=== PATIENT | female | born 1990 | race Caucasian/White ===

== ENCOUNTER 2021-08-21 12:00 | Outpatient (CLI) | payer SELFPAY ==
--- NOTE | 2021-08-21 12:21 | CT_ITS ---
WS: [id number] CT ABDOMEN AND PELVIS WITH CONTRAST HISTORY: ABDOMINAL PAIN, follow-up on splenomegaly TECHNIQUE: Imaging performed of the abdomen and pelvis with IV contrast. Single phase imaging of the abdomen. Coronal and sagittal reformats are submitted. All CT scans at [facility] use at [facility] [facility] one of these dose optimization techniques: automated exposure control; mA and/or kV adjustment per patient size (includes targeted exams where dose is matched to clinical indication); or iterative re construction. IV CONTRAST: Omnipaque 300; 95 mL IV. Oral contrast: Yes. DLP: 964.80 mGy.cm COMPARISON: Ultrasound 06/17/2011 Lower thorax: Lung bases are clear. Heart is normal size. No hiatal hernia. Liver/biliary system: Normal size with no intrahepatic dilatation. Gallbladder: Normal. No gallstones or wall thickening. No pericholecystic fluid. Pancreas: Normal size pancreas and pancreatic duct. No adjacent inflammation. Spleen: Normal size spleen. No mass or infarct. Adrenal glands: Normal. Right kidney: Normal size kidney. 8 mm cyst in the mid kidney. No obstruction. Left kidney: Normal. Aorta: Normal. Lymphadenopathy: None. Free fluid: None. GI tract: Normally distended stomach. No small bowel obstruction. Mild fecal retention in the RIGHT c olon. The appendix is normal. Abdominal wall: Unremarkable abdominal wall. No hernia. Pelvis: Uterus is anteverted. Mild thickening of the endometrium may be due to patient's menstrual cy nick. Normal urinary bladder. Bones: Sclerotic focus is lobulated in the proximal LEFT femur metaphysis. Enchondroma or infarct. No cortical destruction and no adjacent periosteal reaction. CT/CT abdomen pelvis w con* [id number] IMPRESSION: 1. Normal size spleen. 2. Lobulated sclerotic focus in the proximal LEFT femur. Probably an infarct o r enchondroma. 3. Mild thickening of the endometrium. May be related to patient's menstrual c ycle. If the patient is having abnormal vaginal bleeding consider follow-up tra nsvaginal pelvic ultrasound imaging.
[2021-08-21] MEDS: iohexol 300 mg/mL 100 mL Btl IV (14:08)
[2021-08-21] MEDS: iohexol 300 mg/mL 50 mL Btl PO (14:08)
== END 2021-08-21 12:01 | disposition home or self-care (01) ==
LOC: RAD 12:01
PROVIDERS: Family Provider Nurse Practitioner; PCP Nurse Practitioner Family; Visit Provider Nurse Practitioner Family
DX: R10.9 Unspecified abdominal pain (principal); R93.89 Abnormal findings on diagnostic imaging of other specified body structures
CPT/HCPCS: 74177

== ENCOUNTER → 2022-03-26 08:34 | Outpatient (BNVA) | payer SELFPAY | PROVIDERS: Family Provider Nurse Practitioner; PCP Nurse Practitioner Family; Referring Provider Nurse Practitioner Family; Visit Provider Podiatrist Foot & Ankle Surgery | DX: G57.91 Unspecified mononeuropathy of right lower limb (principal); R60.9 Edema, unspecified | CPT/HCPCS: 73630 ==

== ENCOUNTER 2023-10-07 10:50 | Outpatient (CLI) | payer SELFPAY ==
[2023-10-07 11:05] VITALS: BP 119/76; PULSE 81
[2023-10-07 11:10] VITALS: BMI 35.5
--- NOTE | 2023-10-07 12:00 | PC.NURSE ---
patient was educated on NST, moderate variability, acceleration. Patient expressed concern about lower FHTs in clinic being cause by a nucal cord, educated patient that while nucal cords are not uncommon it is rare that nucal cords cause a significant issue. Provided written education on when to return to labor and delivery. Patient signed discharge paperwork. Several minutes later, Christian Christian notified this nurse that the patient had told her that she would like an ultrasound to check on baby. This RN called Dr. Cano to notify her of patients request and education provided. Dr. Cano stated that an ultra sound was not indicated at this time and to reeducate patient and if patient still has concerns that she can follow up with Dr. Cano in clinic. Education provided again, questions answered. 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 Patient stated that she understood.
== END 2023-10-07 12:00 | disposition home or self-care (01) ==
LOC: OPOB 10:55 → OBGYN 10:55
PROVIDERS: PCP Family Medicine; Visit Provider Family Medicine
DX: O26.899 Other specified pregnancy related conditions, unspecified trimester (principal); Z3A.00 Weeks of gestation of pregnancy not specified
CPT/HCPCS: 59025; 99211

== ENCOUNTER 2023-10-19 07:00 | Inpatient (IN) | payer SELFPAY ==
[2023-10-19] VITALS (123 sets, daily range): BP systolic 83–140; BP diastolic 46–94; PULSE 60–121; TEMP 35.9–37; O2SAT 96–100; BMI 35.6
[2023-10-19 04:23] LABS: Nitrazine Paper, PH Inconclusive
[2023-10-19 05:19] LABS: Actim Prom Positive
[2023-10-19] MEDS: clindamycin 900 MG/50 ML PREMIX 100 MG IV ×3 (06:14→21:30)
[2023-10-19] MEDS: dextrose 5%-lactated ringers 1,000 ML 125 ML IV (06:17)
[2023-10-19 06:26] LABS: Basophils % 0.4 %; Eosinophils # 0.1 10^3/uL (0.0-0.8); Hematocrit 34.1 % (36-47); Lymphocytes # 1.5 10^3/uL (0.8-4.8); Lymphocytes % 19.8 %; Mean Corpuscular Hemoglobin 29.4 pg (27-33); Mean Corpuscular Volume 91.9 fl (85-98); Mean Platelet Volume 12.3 fL (7.4-10.4); Monocytes # 1.2 10^3/uL (0.2-0.9); Monocytes % 15.1 %; Neutrophils % 62.7 %; Nucleated Red Blood Cells % 0 %; Platelet Count 222 10^3/cmm (157-399); Red Blood Count 3.71 10^6/uL (3.85-5.65); Red Cell Distribution Width 12.8 % (12.1-15.1); White Blood Count 7.67 10^3/uL (3.29-11.43)
[2023-10-19] MEDS: oxytocin 30 UNIT/500 ML BAG IV (09:11)
[2023-10-19] MEDS: lactated ringers 1,000 ML 999 ML IV ×2 (16:27→17:57)
[2023-10-19] MEDS: ondansetron 2 mg/ML SDV 2 mL 4 MG IVP (16:44)
--- NOTE | 2023-10-19 18:11 | PM.OPHPUD ---
Labor & Delivery H&P Update Date of Procedure: October 19, 2023 Date H&P Performed: 10/14/23 Admission Diagnosis: IUP at 39 weeks 3 days gestation Spontaneous rupture of membranes Group B strep carrier Primary indication for procedure: Induction of labor and delivery with GBS prophylaxis
--- NOTE | 2023-10-19 18:20 | PC.NURSE ---
Pitocin paused while distinguishing between and maternal heart rate on monitor.
--- NOTE | 2023-10-19 18:31 | ANES.PREANE2 ---
Pre-Anesthetic Assessment Height/Weight: Height 1.68 m Weight 100.244 kg Temp Pulse BP Pulse Ox O2 Del Method 97.7 F 96 124/66 98 Room Air 10/19/23 16:34 10/19/23 18:26 10/19/23 18:26 10/19/23 18:26 10/19/23 05:48 Preop Diagnosis: IUP Labor epidural Familial anesthetic complications: None Was Beta Diego taken within 24 hours: N/A Was Clonidine taken within 24 hours: N/A Last intake: liquid 1800 10/19/23; solid >8 hours Social No alcohol and No tobacco Exam alert, oriented x 3 and clear to auscultation bilaterally Airway Submandibular: within normal limits Mallampati: Class II Dentition: full History/ROS No significant history except as noted Pulmonary None reported CV/HEM None reported None reported Hepatic enlarged spleen GI None reported Metabolic None reported Musc/skel None reported Neuropsych None reported Anesthetic Plan ASA status: 2 Anesthesia: Anesthesia Evaluation and Regional (specify below) (epidural) Risk of > 500 ml blood loss (7ml/kg in children): Yes, adequate IV access and fluids planned Medications/Allergies Home Medications Medication Instructions Recorded Confirmed Last Taken Type 1 cap PO DAILY 10/07/23 10/19/23 1 Day Ago History ~10/18/23 1 Allergies Allergy/AdvReac Type Severity Reaction Status Date / Time Penicillins Allergy Unknown Unknown Verified 03/26/22 08:42 vaccine adjuvant system, Allergy Unknown Unknown Verified 03/26/22 08:42 [id number] liposomal peanuts Allergy Mild ADR-Gastrointestinal Uncoded 03/26/22 08:42 Upset Current Medications Generic Name Dose Route Start Last Admin Trade Name Ricq PRN Reason Stop Dose Admin Dextrose/Lactated Ringer's 1,000 mls @ 125 mls/hr 10/19/23 05:30 10/19/23 17:55 Dextrose 5%-Lactated Ringers IV Infused .Q8H HERSON Infusion Clindamycin HCl/Dextrose 900 mg in 50 mls @ 100 mls/hr 10/19/23 05:30 10/19/23 13:45 Cleocin IV Infused Q8H HERSON Infusion Protocol Oxytocin 30 unit in 500 mls @ 1 mls/hr 10/19/23 09:00 10/19/23 12:20 Pitocin IV 20 milliunit/min .Q24H HERSON 20 mls/hr Titration Protocol 1 MILLIUNIT/MIN Lactated Ringer's 1,000 mls @ 999 mls/hr 10/19/23 16:24 10/19/23 17:57 Lactated Ringers IV 999 mls/hr .Q1H1M PRN Administration See label comments Ondansetron HCl 4 mg 10/19/23 05:25 10/19/23 16:44 Ondansetron 2 Mg/Ml Sdv 2 Ml IVP 4 mg Q4H PRN Administration NAUSEA AND VOMITING PFSH Anesthesia Medical History Heart murmur History of kidney stones Ruptured ear drum both Spleen enlarged Surgical History (Updated 11/02/20 @ 23:05 by PRO Loredo) [place] teeth extracted Family History (Updated 10/29/20 @ 16:37 by Desi Baker MA) Other Cancer Chronic kidney disease (CKD) Dementia Diabetes Hypertension Lung disease Stroke Denies family history of Bleeding disorder Social History Smoking and tobacco/nicotine status: never used tobacco/nicotine Second hand smoke exposure: No Alcohol intake: never Substance/Drug Use: never Adopted: No Caregiver/support person: No Lives independently: Yes Household members: none Housing: House Marital status: Single Number of children: 0 Highest education level completed: Professional Degree (MD, DO, ZARINA, DVM, DDS, DPM, etc) service: No Current occupational status: employed Current occupation: [employer] Do you think of yourself as: Straight/Heterosexual Current gender identity: Female Female Reproductive History : 1 Data Anesthesia 10/19/23 06:17 Short CBC 10/19/23 Range/Units 06:17 WBC 7.67 (3.29-11.43) 10^3/uL Hgb 10.90 L (11.27-16.99) g/dL Hct 34.1 L (36-47) % MCV 91.9 (85-98) fl Plt Count 222 (157-399) 10^3/cmm Neut % (Auto) 62.7 % Neut # (Auto) 4.80 (1.8-7.7) 10^3/uL Blood Bank 10/19/23 10/19/23 06:17 08:41 Blood Type Cancelled A Positive Rho(D) Type Cancelled Rh positive Antibody Screen Cancelled Negative Cardiac Studies: No Data to Display Anesthesia Procedures Epidural Time Out Performed: Yes Consents Signed: Procedure Consent Consent: requested by attending/covering physician, from patient, risks and benefits reviewed and patient agrees to proceed Lumbar Level: L4-L5 Epidural position: sitting Epidural procedure: sterile prep of area, 1% lidocaine to numb the area, 18 g needle, negative for paresthesia passed, neg for paresthesia, test dose given, 1.5% xylocaine 1:200k epi, 0.2% Ropivacaine bolus ml (5), placed PCEA, no systemic response, sterile dressing applied, L.U.D. no apparent complications and 0.2% Ropiavacaine @ mls/hr (10) Additional Comments: UMER 6cm, catheter easily threaded to 5cm in the space. Pt reporting decreased pain with contractions, all VS monitored throughout and remained stable. 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
[2023-10-19] MEDS: ROPivacaine syringe 100 MG/50 ML SYRINGE 10 MG EPIDURAL ×2 (18:35→22:16)
[2023-10-20] VITALS (41 sets, daily range): BP systolic 86–164; BP diastolic 36–132; PULSE 59–112; RESP 16; TEMP 37.1–37.3; O2SAT 97–100; BMI 35.6
[2023-10-20] MEDS: dextrose 5%-lactated ringers 1,000 ML 125 ML IV ×4 (00:21→21:42)
[2023-10-20] MEDS: ROPivacaine syringe 100 MG/50 ML SYRINGE 10 MG EPIDURAL (01:57)
[2023-10-20] MEDS: lactated ringers 1,000 ML 999 ML IV (02:19)
[2023-10-20] MEDS: citric acid-sodium citrate 30 mL UDC PO (02:19)
[2023-10-20] MEDS: famotidine 20 mg/2 mL INJ IVP (02:19)
[2023-10-20] MEDS: metoclopramide 5 mg/mL SDV 2 mL 10 MG IV (02:19)
[2023-10-20] MEDS: ceFAZolin 2,000 MG in sodium chloride 0.9% (plus) 50 ML 100 MG IV (02:38)
--- NOTE | 2023-10-20 03:51 | PM.OP ---
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 She had pushed for about an hour and was pushing effectively. Nursing had called her 0 station but upon my examination I would call her -2. There was 0 movement of the presenting part with effective pushing so decision was made to proceed with primary section. Procedure: After informed consent the patient was taken to the OR where adequate epidural anesthesia was verified. She was prepped and draped in normal sterile fashion in dorsal supine position with a left lateral tilt. A Pfannenstiel skin incision was made and carried through to the underlying layer of fascia sharply. There were several bleeders that were coagulated using the Bovie. The fascial incision was then extended laterally using the May[place]. The fascia was then grasped with [place] clamps and the underlying rectus muscles were dissected off taking care to avoid injury to the underlying tissue. The peritoneum was then entered bluntly and the incision site was manually stretched. The bladder blade was inserted. The vesicouterine peritoneum was identified and entered sharply using the Metzenbaums. The bladder flap was then created digitally and the bladder blade was reinserted. Uterine incision was made in a transverse fashion in the lower uterine segment. Amniotic rupture of membranes was performed sharply and clear fluid was noted. The was delivered in OP vertex presentation with bulb suction of the mouth and naris at delivery. The cord was clamped and cut. The infant was handed to the waiting pediatric nurse. Cord blood was obtained. The placenta was delivered using fundal pressure. The uterus was then exteriorized from the abdomen and a dry sponge was used to clear the uterus of clots and debris. The uterine incision was repaired using 0 chromic in a running locked fashion. The uterus was very boggy so 10 units of Pitocin was injected into the muscular body. A second layer of the same suture was then used in an imbricating manner. The uterus was then returned to the abdomen. Irrigation was used to clear the gutters of clots and debris and the uterine incision was reinspected for hemostasis. The peritoneum was then reapproximated using 4-0 Vicryl in a running fashion. The subfascial tissue was inspected for hemostasis and the fascia was then reapproximated using 0 Vicryl in a running fashion. The subcutaneous tissue was then irrigated. The subcutaneous tissue was then reapproximated using 4-0 Vicryl in a running fashion. The skin was then reapproximated using 4-0 Vicryl on a Artemio needle. Steri-Strips and a pressure bandage were applied patient went to recovery in good condition. Sponge instrument and needle counts were correct.
[2023-10-20] MEDS: oxytocin 30 UNIT/500 ML BAG 300 UNIT IV (05:02)
[2023-10-20] MEDS: ferrous sulfate EC 325 mg Tablet PO ×2 (09:39→18:39)
[2023-10-20] MEDS: docusate sodium 100 mg Capsule PO ×2 (09:40→18:39)
[2023-10-20] MEDS: PRENATAL VIT NO.130/IRON/FOLIC 1 EACH TABLET PO (09:40)
[2023-10-20] MEDS: ketorolac 30 mg/mL INJ IVP ×3 (09:40→21:43)
[2023-10-20] MEDS: sodium chloride 0.9% 500 ML 999 ML IV ×2 (12:44→16:16)
[2023-10-20 16:14] LABS: Hematocrit 26.9 % (36-47); Mean Corpuscular HGB Conc 33.1 g/dL (30-55); Mean Corpuscular Hemoglobin 30.1 pg (27-33); Mean Corpuscular Volume 90.9 fl (85-98); Mean Platelet Volume 12.8 fL (7.4-10.4); Platelet Count 198 10^3/cmm (157-399); Red Blood Count 2.96 10^6/uL (3.85-5.65); Red Cell Distribution Width 12.9 % (12.1-15.1); White Blood Count 13.89 10^3/uL (3.29-11.43)
[2023-10-21 03:24] VITALS: BP 105/57; PULSE 63
[2023-10-21 03:29] VITALS: TEMP 36.8
[2023-10-21 07:54] VITALS: BP 102/60; PULSE 69
[2023-10-21] MEDS: docusate sodium 100 mg Capsule PO ×2 (07:54→17:46)
[2023-10-21] MEDS: HYDROcodone-acetaminophen 5-325 mg Tablet PO ×3 (07:54→22:58)
[2023-10-21 07:55] VITALS: RESP 16; TEMP 36.9
[2023-10-21] MEDS: ferrous sulfate EC 325 mg Tablet PO ×2 (07:55→17:46)
--- NOTE | 2023-10-21 08:00 | ANE.PACU2 ---
Inpatient post-anesthesia follow up: Airway intact: Yes Vital signs: Temperature 98.1 F Pulse Rate 64 Respiratory Rate 18 Blood Pressure 121/77 Pulse Oximetry 97 Oxygen Delivery Me thod Room Air Oxygen Flow Rate Fraction of Inspir ed Oxygen Hydration adequate: Yes Nausea and vomiting: No Pain level: 1 Mental status: Baseline Epidural Start/End: Epidural Start Date: 10/19/23 Epidural Start Time: 18:18 Epidural End Date: 10/20/23 Epidural End Time: 03:40
--- NOTE | 2023-10-21 12:32 | PM.PN ---
Subjective Subjective: Postop day 1 primary section Doing well. She has been up and showered, she is ambulating, she is tolerating a regular diet, she has decent pain control. Vitals/I&O/Wt Last Vital Signs Temp 98.4 F 10/21/23 07:55 Pulse 69 10/21/23 07:54 Resp 16 10/21/23 07:55 BP 102/60 10/21/23 07:54 Pulse Ox 97 10/20/23 04:20 O2 Del Method Room Air 10/20/23 04:20 10/20/23 10/21/23 10/21/23 22:59 06:59 14:59 Intake Total 368.75 / 1610.431 8612 / 1200 Output Total 460 / 835 375 / 1210 800 / 800 Balance -91.25 / 429.583 -375 / 54.583 400 / 400 Weight last 48 hrs Weight 100.244 kg Physical Exam Narrative: Alert and oriented, sitting up in bed holding infant, heart regular rate and rhythm, lungs clear to auscultation bilaterally, abdomen is soft with appropriate postoperative tenderness, incision is clean dry and intact with Steri-Strips in place, extremities have 1+ edema but no calf tenderness Urinary Catheter Management: Marmolejo: Cath Placed During This Visit: yes, but has since been removed by the nurse Reason for Continuing Indwelling Catheter: Perioperative Use in Selected Surgeries Urinary Catheter Date of Insertion: 10/20/23 Urinary Catheter Time of Insertion: 02:00 Date Urinary Catheter Removed: 10/21/23 Time Urinary Catheter Discontinued: 08:15 Data 10/20/23 15:00 A&P Assessment and plan (1) Delivery by section using low vertical uterine incision: For failure to descend Attestations Medical Necessity Statement*: Continue routine postoperative and care Coding Level of Care Code Acute Code for Chg Fwd Diagnoses Delivery by section using low vertical uterine incision O82
[2023-10-21 15:05] VITALS: BP 112/76; PULSE 81
[2023-10-21 21:11] VITALS: BP 105/62; PULSE 69; PULSE 74; RESP 18; TEMP 36.9; O2SAT 97
[2023-10-21] MEDS: simethicone 80 mg Chew PO (21:13)
[2023-10-22] VITALS (7 sets, daily range): BP systolic 104–121; BP diastolic 63–77; PULSE 59–64; RESP 16–18; TEMP 36.6–36.8
[2023-10-22] MEDS: docusate sodium 100 mg Capsule PO (10:30)
[2023-10-22] MEDS: HYDROcodone-acetaminophen 5-325 mg Tablet PO (10:30)
[2023-10-22] MEDS: ferrous sulfate EC 325 mg Tablet PO (10:30)
--- NOTE | 2023-10-22 12:45 | P.PN_ITS ---
Subjective 2 Subjective: see d/c summory. entry done to correct problem from vertical to low-transverse. Vitals/I&O/Wt Last Vital Signs Temp 98.2 F 10/22/23 10:35 Pulse 61 10/22/23 10:34 Resp 16 10/22/23 10:35 BP 104/63 10/22/23 10:34 Pulse Ox 97 10/21/23 21:11 O2 Del Method Room Air 10/22/23 06:00 10/21/23 10/22/23 10/22/23 22:59 06:59 14:59 Intake Total 1500 / 2700 Balance 1500 / 1900 Physical Exam 2 Urinary Catheter Management: Marmolejo: Cath Placed During This Visit: yes, but has since been removed by the nurse Reason for Continuing Indwelling Catheter: Perioperative Use in Selected Surgeries Urinary Catheter Date of Insertion: 10/20/23 Urinary Catheter Time of Insertion: 02:00 Date Urinary Catheter Removed: 10/21/23 Time Urinary Catheter Discontinued: 08:15 Data 10/20/23 15:00 A&P Assessment and plan (1) Delivery by section using transverse incision of lower segment of uterus: Attestations 2 Medical Necessity Statement*: routine pp care Coding Level of Care Code Acute Code for Chg Fwd Diagnoses Delivery by section using transverse incision of lower segment of uterus O82
--- NOTE | 2023-10-22 13:16 | P.DS_ITS ---
Discharge Providers Date of Admission: 10/19/23 07:00 Date of Discharge: October 22, 2023 Attending Provider at Admission: Whitney Cano MD Attending Provider at Discharge: Whitney Cano MD Primary Care Provider: Whitney Cano MD Diagnoses at Discharge Discharge Diagnosis (1) Delivery by section using transverse incision of lower segment of uterus: Status: Acute Reason for Visit Reason for Visit: Possible ROM Hospital Course Hospital Course This is a 32-year-old G1 now P1 who was admitted with spontaneous rupture of membranes. She ended up having a primary low-transverse section for failure to descend. She has done well postoperatively. She is ambulating, tolerating a regular diet, has decent pain control and is comfortable with discharge home. Physical Exam Narrative: Alert and oriented, walking around the room, heart regular rate and rhythm, lungs clear to auscultation bilaterally, abdomen is soft with appropriate postoperative tenderness, incision is clean dry and intact with Steri-Strips in place, extremities have 2+ edema but no calf tenderness. Urinary Catheter Management: Marmolejo: Cath Placed During This Visit: yes, but has since been removed by the nurse Reason for Continuing Indwelling Catheter: Perioperative Use in Selected Surgeries Urinary Catheter Date of Insertion: 10/20/23 Urinary Catheter Time of Insertion: 02:00 Date Urinary Catheter Removed: 10/21/23 Time Urinary Catheter Discontinued: 08:15 Discharge Data Studies Completed and Pending Laboratory Results WBC 13.89 10^3/uL (3.29-11.43) H 10/20/23 15:00 RBC 2.96 10^6/uL (3.85-5.65) L 10/20/23 15:00 Hgb 8.90 g/dL (11.27-16.99) L 10/20/23 15:00 Hct 26.9 % (36-47) L 10/20/23 15:00 MCV 90.9 fl (85-98) 10/20/23 15:00 MCH 30.1 pg (27-33) 10/20/23 15:00 MCHC 33.1 g/dL (30-55) 10/20/23 15:00 RDW 12.9 % (12.1-15.1) 10/20/23 15:00 Plt Count 198 10^3/cmm (157-399) 10/20/23 15:00 MPV 12.8 fL (7.4-10.4) H 10/20/23 15:00 Neut % (Auto) 62.7 % 10/19/23 06:17 Lymph % (Auto) 19.8 % 10/19/23 06:17 [place] % (Auto) 15.1 % 10/19/23 06:17 Eos % (Auto) 1.0 % 10/19/23 06:17 Baso % (Auto) 0.4 % 10/19/23 06:17 Neut # (Auto) 4.80 10^3/uL (1.8-7.7) 10/19/23 06:17 Lymph # (Auto) 1.5 10^3/uL (0.8-4.8) 10/19/23 06:17 [place] # (Auto) 1.2 10^3/uL (0.2-0.9) H 10/19/23 06:17 Eos # (Auto) 0.1 10^3/uL (0.0-0.8) 10/19/23 06:17 Baso # (Auto) 0.0 10^3/uL (0.0-0.1) 10/19/23 06:17 Nucleated RBC % (auto) 0 % 10/19/23 06:17 Nucleated RBCs # 0.0 /100WBC 10/19/23 06:17 Insulin-like GF I Positive 10/19/23 05:08 Fluid pH (paper) Inconclusive 10/19/23 04:15 Blood Type A Positive 10/19/23 08:41 Rho(D) Type Rh positive 10/19/23 08:41 Antibody Screen Negative 10/19/23 08:41 Vitals Last Vital Signs Temp 98.2 F 10/22/23 10:35 Pulse 61 10/22/23 10:34 Resp 16 10/22/23 10:35 BP 104/63 10/22/23 10:34 Pulse Ox 97 10/21/23 21:11 O2 Del Method Room Air 10/22/23 06:00 Discharge Plan Discharge Patient Disposition: Home Condition: Stable Prescriptions: New hydrocodone-acetaminophen 5-325 mg Tablet 1 - 2 tab PO Q4H PRN (Reason: Moderate To Severe Pain) Qty: 12 0RF docusate sodium 100 mg Capsule 100 mg PO BID Qty: 60 0RF ibuprofen 200 mg capsule 800 mg PO Q8H PRN (Reason: pain) Qty: 120 0RF Continued capsule 1 cap PO DAILY Discharge Orders: Discharge Order (Routine); Ordered 10/22/23 Ordered By: Whitney Cano Referrals: Whitney Cano MD [Primary Care Provider] - (FOLLOW UP APPOINTMENT FOR YOU AND BABY WITH DR. CANO ON Wednesday10/25/23 AT 1230. ) Discharge Diet: Usual diet Discharge Activity: Limit activity as instructed Patient Instructions: Depression (DC), Opioid Safety (DC), Preeclampsia and Eclampsia After Delivery (GEN), Hemorrhage (DC), OB - [place], OB Discharge Report, OB Food/Drug Interaction Guide, OB Care at Home, Opioid Safety, Abnormal Bleeding Activity Restrictions/Additional Instructions: No lifting greater than 10 pounds for 2 weeks Discharge Attestations Time Spent in Discharge Care*: less than 30 min Quality Metrics Clinical Quality Measures [ No reported AMI, CVA or VTE this stay] Coding Level of Care Code Acute Code for Chg Fwd Diagnoses Delivery by section using transverse incision of lower segment of uterus O82
== END 2023-10-22 14:00 | disposition home or self-care (01) | DRG 788 ==
LOC: OPOB 19:23 → OBGYN 19:23
PROVIDERS: Admitting Provider Family Medicine; PCP Family Medicine; Visit Provider Family Medicine
PROC: 10D00Z1 Extraction of Products of Conception, Low, Open Approach (ICD-10-PCS; CPT 59514; principal; 2023-10-20 02:30)
DX: O99.824 Streptococcus B carrier state complicating childbirth (principal); O32.4XX0 Maternal care for high head at term, not applicable or unspecified; Z3A.39 39 weeks gestation of pregnancy; Z37.0 Single live birth
CPT/HCPCS: 51702; 59025; 59409; 83986; 84112; 85025; 85027; 86850; 86900; 96374; 96376; 99211; J0690; J1200; J1885; J2274; J2371; J2405; J2590; J2704; J2765; J2795; J3490; J7030; J7040; J7120; J7121